=== PATIENT | female | born 1945 ===

== ENCOUNTER 2019-09-06 19:09 | Emergency (ER) | payer MEDICAID ==
[~2019-09-06] VITALS: Ht 152.4 cm; Wt 56.7 kg
[2019-09-06 19:30] VITALS: BP 173/73
[2019-09-06] MEDS ORDERED: FUROSEMIDE40 MG/5 ML ORAL (19:45)
[2019-09-06] MEDS ORDERED: SIMVASTATIN10 MG ORAL (19:45)
[2019-09-06] MEDS ORDERED: IRON325 M1 PO (19:45)
[2019-09-06] MEDS ORDERED: HYDROXYCHLOROQ200 M1 PO (19:45)
[2019-09-06] MEDS ORDERED: RENA-VITE RX T1 EAC1 PO (19:45)
[2019-09-06] MEDS ORDERED: ICAPS MV TABLE1 EACH PO (19:45)
[2019-09-06] MEDS ORDERED: AMLODIPINE BESYL5 MG ORAL (19:45)
[2019-09-06] MEDS ORDERED: PREDNISONE5 M3 PO (19:45)
[2019-09-06] MEDS ORDERED: MYCOPHENOLATE500 MG PO (19:45)
[2019-09-06] MEDS ORDERED: COREG3.125 MG ORAL (19:45)
[2019-09-06] MEDS ORDERED: APRESOLINE50 MG ORAL (19:45)
[2019-09-06] MEDS ORDERED: ASPIRIN-LOW81 MG ORAL (19:45)
[2019-09-06] MEDS ORDERED: OYSTER SHELL 51 EAC1 PO (19:45)
[2019-09-06] MEDS ORDERED: MAGNESIUM OXID400 M2 PO (19:45)
[2019-09-06] MEDS ORDERED: VITAMIN D32000 UNI3 PO (19:45)
[2019-09-06] MEDS ORDERED: LATANOPROST 0.7.5 ML OP (19:47)
--- NOTE | 2019-09-06 19:52 | Emergency Room Report ---
History of Present Illness General Chief Complaint: Head Injury Source: Patient Present Illness HPI Patient is a 74-year-old female presents after fall from chair. She reportedly broke and patient fell backwards hitting the back of her head. She denies any current neck pain. She was noted to have recent upper respiratory infection and had been coughing for several days. Prior history of lupus. She is currently not taking any anticoagulation other than aspirin. She had prior history of anemia. Reports having some mild chest discomfort with coughing. She has been sick with upper respiratory infection for several days. Allergies: Coded Allergies: PENICILLINS (Verified Allergy, Unknown, 09/06/19) Patient History Past Medical History: see triage record Reviewed Nursing Documentation: PMH: Agreed; PSxH: Agreed Nursing Documentation-PMH Past Medical History: No History, Except For Hx Cardiac Problems: Yes - HIGH CHOLESTEROL, LUPUS, IRON DEFFICIENCY, Hx Hypertension: Yes Hx Diabetes: Yes Hx Dialysis: No - KIDNEY PROBLEM Review of Systems All Other Systems: negative except mentioned in HPI Physical Exam Vital Signs Date Time Temp Pulse Resp B/P (MAP) Pulse Ox O2 Delivery O2 Flow Rate FiO2 09/06/19 19:16 98.8 91 18 173/73 (106) 98 Room Air Sp02 EP Interpretation: reviewed, normal General Appearance: normal inspection, well appearing, no apparent distress, alert, Chronically Ill Head: other - occipital scalp swelling no laceration ENT: hearing grossly normal, normal voice, other - large clot to left nare Neck: normal inspection, supple, no bony tend, limited range of motion Respiratory: normal inspection, lungs clear, normal breath sounds, no respiratory distress, no retraction, no wheezing Cardiovascular #1: regular rate, rhythm, no edema Gastrointestinal: normal inspection, normal bowel sounds, non tender, soft, no guarding, no hernia Genitourinary: no CVA tenderness Musculoskeletal: normal inspection, back normal, normal range of motion Neurologic: alert, responsive, speech normal, normal inspection Psychiatric: normal inspection, judgement/insight normal, mood/affect normal Medical Decision Making Diagnostic Impression: Primary Impression: Acute head injury Additional Impressions: Epistaxis Upper respiratory infection Last Vital Signs Date Time Temp Pulse Resp B/P (MAP) Pulse Ox O2 Delivery O2 Flow Rate FiO2 09/06/19 19:16 98.8 91 18 173/73 (106) 98 Room Air Rodri Doan MD Sep 06, 2019 19:52
[2019-09-06] MEDS ORDERED: Oxymetazoline 0.05% Na Spray 30ml NASAL ONE (20:00)
[2019-09-06 20:16] LABS: BASOPHILS % (AUTO) 1.5 % (0.0-2.0); EOSINOPHILS % (AUTO) 1.6 % (0.0-3.0); HEMATOCRIT 24.6 % (37.0-47.0); HEMOGLOBIN 8.3 G/DL (12.0-16.0); LYMPHOCYTES % (AUTO) 18.1 % (20.0-45.0); MEAN CORPUSCULAR VOLUME 82 FL (80-99); MONOCYTES % (AUTO) 11.9 % (1.0-10.0); NEUTROPHILS % (AUTO) 66.9 % (45.0-75.0); PLATELET COUNT 227 K/UL (150-450); RED BLOOD COUNT 3.01 M/UL (4.20-5.40); RED CELL DISTRIBUTION WIDTH 11.2 % (11.6-14.8); WHITE BLOOD COUNT 9.4 K/UL (4.8-10.8)
[2019-09-06] MEDS ORDERED: guaiFENesin 100mg/5ml Liq ud ORAL ONE (21:15)
[2019-09-06 21:20] LABS: INR 0.9 (0.9-1.1)
[2019-09-06] MEDS ORDERED: ACETAMINOPHEN500 M3 ORAL (21:24)
[2019-09-06] MEDS ORDERED: ADULT WAL-100 MG/5 M ORAL (21:25)
--- NOTE | 2019-09-06 21:51 | Diagnostic Imaging Report ---
Indications: Pain, trauma, status post fall Technique: Spiral acquisitions obtained through the brain. Angled axial and coronal 5 x 5 mm slices were reconstructed. Total dose length product 1394 mGycm. CTDI vol(s) 62 mGy. Dose reduction achieved using automated exposure control Comparison: None. Findings: There is age-related enlargement of the ventricles and extra axial CSF spaces. There is periventricular deep white matter low-attenuation, consistent with chronic microvascular ischemic changes. No acute intracranial hemorrhage or edema, mass effect, nor midline shift. Otherwise normal vazquez-white differentiation. The calvarium is intact. There is evidence of prior bilateral cataract surgery. There is minimal ethmoid sinus and right maxillary sinus disease noted. The mastoids are clear Impression: Chronic and age-related changes Negative for acute cranial bleed or mass effect Minimal sinus disease This agrees with the preliminary interpretation provided overnight by [facility]. The CT scanner at [facility] is accredited by the [employer] and the scans are performed using protocols designed to limit radiation exposure to as low as reasonably achievable to attain images of sufficient resolution adequate for diagnostic evaluation.
[2019-09-06 22:00] VITALS: BP 173/73
--- NOTE | 2019-09-06 22:25 | Diagnostic Imaging Report ---
Indications: Facial pain, trauma, status post fall Technique: Spiral images obtained through the facial bones. No IV contrast utilized. Multiplanar reconstructions were generated.Total dose length product 506 mGycm. CTDIvol(s) 24 mGy. Dose reduction achieved using automated exposure control Comparison: none Findings: There is a lucency at the medial aspect of the inferior orbital rim, seen only on single axial slice (3/37 and a single sagittal slice (7/7). This appears to be corticated on both sides. No other evidence of acute fracture. No worrisome sinus opacification. There is evidence of prior bilateral cataract surgery. The optic globes are intact otherwise. The retroseptal orbits are intact. No significant soft tissue swelling There is bilateral maxillary and ethmoid sinus disease. The patient is edentulous. There are degenerative changes of the cervical spine Impression: Lucency involving the left medial inferior orbital rim. Suspect physiologic, most likely a suture or physiologic groove, but nondisplaced fracture cannot be completely ruled out Sinus disease Incidental findings as noted This essentially agrees with the preliminary interpretation provided overnight by [facility]. The CT scanner at [facility] is accredited by the [employer] and the scans are performed using protocols designed to limit radiation exposure to as low as reasonably achievable to attain images of sufficient resolution adequate for diagnostic evaluation.
--- NOTE | 2019-09-07 11:21 | Diagnostic Imaging Report ---
Indication: Shortness of Technique: One view of the chest Comparison: none Findings: The heart is mildly enlarged. There is generalized mild interstitial prominence and central bronchial wall thickening. There may be some Nataly B lines laterally on the right. There is slight blunting of the bilateral costophrenic sulci Impression: Cardiomegaly Suspect mild bilateral pleural effusions Mild interstitial prominence, acuity indeterminate but given the above findings and possible presence of Kirley B lines could indicate acute interstitial edema
== END 2019-09-06 22:00 | disposition home or self-care (01) ==
LOC: EMR 19:50
DX: S09.90XA Unspecified injury of head, initial encounter (principal); R04.0 Epistaxis; J06.9 Acute upper respiratory infection, unspecified; W07.XXXA Fall from chair, initial encounter; Y92.9 Unspecified place or not applicable; Z88.0 Allergy status to penicillin; E78.00 Pure hypercholesterolemia, unspecified; I10 Essential (primary) hypertension; E11.9 Type 2 diabetes mellitus without complications
CPT/HCPCS: 36415; 70450; 70486; 71045; 85025; 85610; 85730; Z7502; 99284